=== PATIENT | female | born 1950 | race Caucasian/White ===

== ENCOUNTER → 2016-07-15 | Outpatient (CLI) | payer BC, MEDICARE ==
--- NOTE | 2016-07-15 12:45 | WWHP ---
DATE OF SERVICE: 07/15/2016 CHIEF COMPLAINT: The patient is here for her routine gynecologic exam and mammogram. HPI: This is a 65-year-old, G2, P2 with an LMP of 2000. The patient is without gynecologic complaints. PAST MEDICAL HISTORY: History of osteopenia. MEDICATIONS: 1. Aspirin 81 mg daily. 2. Vitamin D3, 1000 units daily. 3. Vitamin B complex 1 daily. ALLERGIES: No known drug allergies. 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 SOCIAL HISTORY: She previously smoked when she was in college, but has not smoked since then. She has about one glass of wine per day and denies drug use. She has been a since 2006. She has a boyfriend, but is no longer sexually active and she does not live with him. They have been together since about 2011. 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 REVIEW OF SYSTEMS: Weight has been stable. She denies respiratory, cardiac, or GI problems. She denies maltreatment or falling. PHYSICAL EXAM: Blood pressure 114/71. Height 5 feet 4 inches. Weight 133 pounds. Temperature 97.1, pulse 61. This is a well-developed, well-nourished white female who is alert and oriented x3 in no acute distress. HEENT is within normal limits. NECK: Supple without mass or thyromegaly. CHEST AND LUNGS: Clear to auscultation. HEART: Regular rate and rhythm. Breasts are without mass or discharge. Axillary exam is negative for adenopathy. BACK: Negative for CVA tenderness. ABDOMEN: Soft, nontender, without palpable masses. PELVIC EXAM: External genitalia reveals mild to moderate atrophy without lesions. Cervix and vagina reveal mild to moderate atrophy without lesions. There is a grade 1 cystocele noted. The uterus is midposition, nongravid size and nontender. There are no palpable adnexal masses or tenderness. Rectovaginal exam is negative for mass or tenderness and is negative for occult blood. EXTREMITIES: Nontender. IMPRESSION: A 65-year-old menopausal female with normal gynecologic exam. PLAN: 1. Pap smear was deferred, since she had a normal one last year. 2. Self breast examination was discussed. 3. Mammogram will be done today. 4. Osteoporosis prevention was discussed. We will plan on repeating bone density testing next year. 5. She will return in one year.
--- NOTE | 2016-07-17 12:33 | MM ---
Reason for exam: screening (asymptomatic). Last mammogram was performed 1 year and 3 months ago. History: Patient is postmenopausal. Family history of breast cancer in paternal aunt at age 50 and breast cancer in paternal uncle at age 50. Physical Findings: A clinical breast exam by your physician is recommended on an annual basis and results should be correlated with mammographic findings. MG Screening Mammo w CAD Bilateral CC and MLO view(s) were taken. Prior study comparison: April 24, 2015, bilateral MG screening mammo w CAD. April 03, 2014, bilateral MG screening mammo w CAD. March 22, 2013, bilateral digital screening mammo w/CAD. The breast tissue is extremely dense which could obscure a lesion on mammography. No significant changes when compared with prior studies. ASSESSMENT: Negative, BI-RAD 1 RECOMMENDATION: Routine screening mammogram of both breasts in 1 year.
== END | disposition home or self-care (01) ==
LOC: WWCWWP 10:20
PROVIDERS: ATTEND Obstetrics & Gynecology
DX: Z12.31 Encounter for screening mammogram for malignant neoplasm of breast (principal)

== ENCOUNTER → 2017-11-24 | Outpatient (CLI) | payer MEDICARE ==
[2017-11-24 08:22] VITALS: BP 106/70; PULSE 63; TEMP 97.8; BMI 23.0
--- NOTE | 2017-11-24 09:00 | P.HPOB ---
History of Present Illness H&P Date: 11/24/17 Chief Complaint: The patient is here for her routine gynecologic exam and mammogram. This is a 67-year-old with an LMP of 2000. The patient is without gynecologic complaints and denies any postmenopausal bleeding. Review of Systems Weight has been stable. She denies respiratory, cardiac and G.I. problems. She denies maltreatment or problems with falling. : she denies any significant problems with urinary leakage. Past Medical History Additional Past Medical History / Comment(s): Seasonal allergies and osteopenia. 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 History of Any Multi-Drug Resistant Organisms: None Reported Past Surgical History: Tonsillectomy, Tubal Ligation Additional Past Surgical History / Comment(s): Colonoscopy 2017 (2nd). 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 She is currently not seeing anybody at this time and is not sexually active. - Past Family History Father Family Medical History: Hypertension, Myocardial Infarction ([place]) Additional Family Medical History / Comment(s): Paternal aunt had breast cancer in a paternal uncle also had breast cancer. Mother Family Medical History: Cancer (Lung), Hypertension Medications and Allergies Home Medications Medication Instructions Recorded Confirmed Type Aspirin [Children's Aspirin] mg PO DAILY 11/24/17 History Cholecalciferol [Vitamin D3] unit PO 11/24/17 History Loratadine tab PO DAILY 11/24/17 History Vit B Complx C/Folic Acid/Zinc tab PO DAILY 11/24/17 History [Renaplex Tablet] Allergies Allergy/AdvReac Type Severity Reaction Status Date / Time No Known Allergies Allergy Unverified 11/24/17 08:14 Exam Vital Signs Temp Pulse BP 11/24/17 08:17 97.8 F 63 106/70 Intake and Output 11/23/17 11/24/17 11/24/17 22:59 06:59 14:59 Other: Weight 60.781 kg Height 5'4", BMI 23.0. This is a well-developed well-nourished white female who is alert and oriented times 3 in no acute distress. HEENT: Within normal limits. NECK: Supple without mass or thyromegaly. CHEST AND LUNGS: Clear to auscultation. HEART: Regular rate and rhythm. BREASTS: Are without mass or discharge. AXILLARY EXAM: Negative for adenopathy. BACK: Negative for CVA tenderness. ABDOMEN: Soft, nontender, without palpable masses. PELVIC EXAM: Normal external genitalia with mild atrophy. Cervix and vagina appear normal smiled atrophy. There is no unusual discharge. There is no evidence of prolapse. The uterus is midposition, nongravid size and nontender. There are no palpable adnexal masses or tenderness. RECTAL EXAM: rectovaginal exam is negative for mass or tenderness and is negative for occult blood. EXTREMITIES: Nontender. IMPRESSION: 1. 67-year-old menopausal female with normal gynecologic exam. 2. History of osteopenia. PLAN: 1. Pap smear was performed. 2. Self breast awareness was discussed. 3. Screening mammogram will be done today. 4. Osteoporosis prevention was discussed. Bone density screening will be done today. 5. She does get flu shots in the fall. 6. I have recommended screening colonoscopy since it is been about 10 years. She will try to have this arranged through Dr. Hopkins's office. 7. She will return in one year.
--- NOTE | 2017-11-24 11:14 | BD ---
EXAMINATION TYPE: Axial Bone Density DATE OF EXAM: 11/24/2017 CLINICAL HISTORY: Postmenopausal female Height: 63.75 Weight: 134 Comparison: Prior DEXA bone scan April 25, 2015 FRAX RISK QUESTIONS: Alcohol (3 or more units per day): no Family History (Parent hip fracture): no Glucocorticoids (More than 3mos): no (Ex: prednisone, prednisolone, methylprednisolone, dexamethasone, and hydrocortisone). History of Fracture in Adulthood: yes Secondary Osteoporosis: 1. Type 1 Diabetes: no 2. Hyperthyroidism: no 3. Menopause before 45: no, 47 4. Malnutrition: no 5. Chronic liver disease: no Rheumatoid Arthritis: no Current Tobacco Use: no RISK FACTORS HISTORY OF: History of Wrist Fracture: yes, right When: about 7 years ago Family History of Osteoporosis: no Active: yes Diet low in dairy products/other sources of calcium: no Postmenopausal woman: yes Take estrogen and/or progesterone medications: no Lost more than 2 inches in height since high school: no Frequent falls: no Poor Health: no Hyperparathyroidism: no Adrenal Insufficiency: no MEDICATIONS: Prednisone or other steroids: no Additional Medications: vitamins Additional History: EXAM MEASUREMENTS: Bone mineral densitometry was performed using the [employer] System. Bone mineral density as measured about the Lumbar spine is: ----- L1-L4(G/cm2): 1.065 T Score Values are as follows: ----- L2: -1.6 ----- L3: -0.9 ----- L4: -0.2 ----- L1-L4: -1.0 Bone mineral density has: Decreased -0.1% since study of: 04/25/2015 Bone mineral density about the R hip (g/cm2): 0.827 Bone mineral density about the L hip (g/cm2): 0.956 T Score values are as follows: -----R Neck: -1.5 -----L Neck: -0.6 -----R Total: -1.4 -----L Total: -0.5 Bone mineral density has: Increased 1.5% since study of: 04/25/2015 IMPRESSION: Osteopenia (T Score between -2.5 and -1) remains present. Bone density fairly stable from prior. There is slightly increased risk of fracture and the patient may be considered for treatment. Re-Screen 2-5 years. NOTE: T-SCORE=SD OF THE YOUNG ADULT MEAN.
--- NOTE | 2017-11-25 10:31 | MM ---
Reason for exam: screening (asymptomatic). Last mammogram was performed 1 year and 4 months ago. History: Patient is postmenopausal. Family history of breast cancer in paternal aunt at age 50 and breast cancer in paternal uncle at age 50. Physical Findings: A clinical breast exam by your physician is recommended on an annual basis and results should be correlated with mammographic findings. MG 3D Screening Mammo W/Cad Bilateral CC and MLO view(s) were taken. Prior study comparison: July 17, 2016, bilateral MG screening mammo w CAD. April 24, 2015, bilateral MG screening mammo w CAD. The breast tissue is extremely dense which could obscure a lesion on mammography. There is no discrete abnormality. ASSESSMENT: Negative, BI-RAD 1 RECOMMENDATION: Routine screening mammogram of both breasts in 1 year.
== END | disposition home or self-care (01) ==
LOC: WWCWWP 07:52
PROVIDERS: ATTEND Obstetrics & Gynecology
DX: Z12.31 Encounter for screening mammogram for malignant neoplasm of breast (principal); M85.80 Other specified disorders of bone density and structure, unspecified site; Z78.0 Asymptomatic menopausal state
CPT/HCPCS: 77063; 77067; 77080

== ENCOUNTER → 2018-04-21 | Day surgery (SDC) | payer MEDICARE ==
[2018-04-19 11:20] VITALS: BMI 22.3
[~2018-04-21] MED LIST: LACTATED RINGERS 1,000 ML IV SCH; LIDOCAINE 1% 20 ML VIAL (10MG/ML) FOR IV START INTRADERMA PRN; PROPOFOL 10 MG/ML 20 ML VIAL IV ONE
[2018-04-21 10:01] VITALS: RESP 16; TEMP 98.6
--- NOTE | 2018-04-21 10:23 | P.PCN ---
Date of Procedure: 04/21/18 Procedure(s) Performed: BRIEF HISTORY: Patient is a 67-year-old pleasant white female, scheduled for an elective colonoscopy as a part of screening for colorectal neoplasia. PROCEDURE PERFORMED: Colonoscopy. PREOPERATIVE DIAGNOSIS: Screening for colon cancer. IV sedation per Anesthesia. PROCEDURE: After informed consent was obtained, the patient, was brought into the endoscopy unit. IV sedation was administered by Anesthesia under continuous monitoring. Digital rectal examination was normal. Initially the Olympus CF- 160 flexible video colonoscope was then inserted in the rectum, gradually advanced into the cecum without any difficulty. Careful examination was performed as the scope was gradually being withdrawn. Ileocecal valve and the appendiceal orifice were visualized and appeared normal. Prep was excellent. Mucosa of the cecum, ascending colon, transverse colon, descending colon, sigmoid colon, and rectum appeared normal. Retroflexion was performed in the rectum and no lesions were seen. The patient tolerated the procedure well. IMPRESSION: Normal-appearing colon from rectum to cecum with no evidence of colorectal neoplasia . RECOMMENDATIONS: Findings of this examination were discussed with the patient as well as a family.. She was advised to have a repeat screening coloscopy in 10 years.
[2018-04-21 10:42] VITALS: BP 126/75; PULSE 66
== END | disposition home or self-care (01) ==
LOC: ORWHC2ENDO 08:55
PROVIDERS: ATTEND Internal Medicine Gastroenterology
DX: Z12.11 Encounter for screening for malignant neoplasm of colon (principal); Z79.82 Long term (current) use of aspirin
CPT/HCPCS: J2704; G0121

== ENCOUNTER → 2019-01-25 | Outpatient (CLI) | payer MEDICARE ==
[2019-01-25 08:01] VITALS: BP 110/67; PULSE 66; RESP 18; TEMP 97.8; BMI 23.1
--- NOTE | 2019-01-25 08:30 | P.HPOB ---
History of Present Illness H&P Date: 01/25/19 Chief Complaint: The patient is here for her routine gynecologic exam and ma mmogram. This is a 68-year-old G to P2 with an LMP of 2000. The patient is without gynecologic complaints. Review of Systems Weight has been stable. She denies respiratory, cardiac and G.I. problems. She denies maltreatment or problems with falling. : she denies any significant problems with urinary leakage. Past Medical History Past Medical History: Osteoarthritis (OA) Additional Past Medical History / Comment(s): Seasonal allergies and osteopenia. 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 History of Any Multi-Drug Resistant Organisms: None Reported Past Surgical History: Tonsillectomy, Tubal Ligation Additional Past Surgical History / Comment(s): Colonoscopy 2018(next after 10yrs). Past Anesthesia/Blood Transfusion Reactions: No Reported Reaction Past Psychological History: No Psychological Hx Reported Smoking Status: Former smoker Past Alcohol Use History: Daily (One per day) Additional Past Alcohol Use History / Comment(s): smoked only in college. 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 She has a boyfriend since 2019 but does not live with him. She [place] much of [place]. - Past Family History Father Family Medical History: Hypertension, Myocardial Infarction ([place]) Additional Family Medical History / Comment(s): Paternal aunt had breast cancer in a paternal uncle also had breast cancer. Mother Family Medical History: Cancer, Hypertension Additional Family Medical History / Comment(s): Lung cancer. Medications and Allergies Home Medications Medication Instructions Recorded Confirmed Type Aspirin [Children's Aspirin] 1 mg PO DAILY 11/24/17 01/25/19 History Cholecalciferol [Vitamin D3] 1 tab PO DAILY 11/24/17 01/25/19 History Loratadine 1 tab PO DAILY 11/24/17 01/25/19 History Vit B Complx C/Folic Acid/Zinc 1 tab PO DAILY 11/24/17 01/25/19 History [Renaplex Tablet] Allergies Allergy/AdvReac Type Severity Reaction Status Date / Time No Known Allergies Allergy Unverified 01/25/19 08:02 Exam Vital Signs Temp Pulse Resp BP Pulse Ox 09/10/19 07:54 97.8 F 66 18 110/67 98 Intake and Output 01/24/19 01/25/19 01/25/19 22:59 06:59 14:59 Other: Weight 61.235 kg Height 5'4", weight 135 pounds, BMI 23.2. This is a well-developed well-nourished white female who is alert and oriented times 3 in no acute distress. HEENT: Within normal limits. NECK: Supple without mass or thyromegaly. CHEST AND LUNGS: Clear to auscultation. HEART: Regular rate and rhythm. BREASTS: Are without mass or discharge. AXILLARY EXAM: Negative for adenopathy. BACK: Negative for CVA tenderness. ABDOMEN: Soft, nontender, without palpable masses. PELVIC EXAM: Normal external genitalia with mild atrophy. Cervix and vagina appear normal mild atrophy. There is no unusual discharge. There is no evidence of prolapse. The uterus is midposition, nongravid size and nontender. There are no palpable adnexal masses or tenderness. RECTAL EXAM: rectovaginal exam is negative for mass or tenderness and is negative for occult blood. EXTREMITIES: Nontender. IMPRESSION: 1. 68-year-old menopausal female with normal gynecologic exam. 2. History of osteopenia. PLAN: 1. Pap smear was deferred since he had a normal one on 11/24/2017. 2. Self breast awareness was discussed with the patient. 3. Screening mammogram will be done today. 4. Osteoporosis prevention was discussed. I have stressed the importance of adequate calcium, vitamin D and regular exercise. Recommended amounts of calci um and vitamin D were also discussed. We will repeat bone density testing in approximately 2 years. 5. She plans to get a flu shot in the near future through her PCP. 6. The patient was advised to return in 1-2 years for her well woman examination.
--- NOTE | 2019-01-26 10:45 | MM ---
Reason for exam: screening (asymptomatic). Last mammogram was performed 1 year and 2 months ago. History: Patient is postmenopausal. Family history of breast cancer in paternal aunt at age 50 and breast cancer in paternal uncle at age 50. Physical Findings: A clinical breast exam by your physician is recommended on an annual basis and results should be correlated with mammographic findings. MG 3D Screening Mammo W/Cad Bilateral CC and MLO view(s) were taken. Prior study comparison: November 24, 2017, bilateral MG 3d screening mammo w/cad. July 17, 2016, bilateral MG screening mammo w CAD. The breast tissue is extremely dense which could obscure a lesion on mammography. No suspicious abnormality. No significant changes when compared with prior studies. ASSESSMENT: Negative, BI-RAD 1 RECOMMENDATION: Routine screening mammogram of both breasts in 1 year.
== END | disposition home or self-care (01) ==
LOC: WWCWWP 07:47
PROVIDERS: ATTEND Obstetrics & Gynecology
DX: Z12.31 Encounter for screening mammogram for malignant neoplasm of breast (principal)
CPT/HCPCS: 77063; 77067

== ENCOUNTER → 2020-02-28 | Outpatient (CLI) | payer MEDICARE ==
[2020-02-28 08:04] VITALS: BP 127/86; PULSE 72; RESP 18; TEMP 97.9
--- NOTE | 2020-02-28 08:44 | P.HPOB ---
History of Present Illness H&P Date: 02/28/20 Chief Complaint: The patient is here for her routine gynecologic exam and ma mmogram. This is a 69-year-old with an LMP of 2000. The patient states she has noticed a small boil on the left labia recently. She has had something similar about every 3 years. She states it is not very painful but can occasionally be sore. She states it typically goes away. It does not look like a blister. She is otherwise without complaints and denies any postmenopausal bleeding. Review of Systems She is gained about 6 pounds over the last year. She denies respiratory, cardiac and G.I. problems. She denies maltreatment or problems with falling. : she denies any significant problems with urinary leakage. Past Medical History Past Medical History: Osteoarthritis (OA) Additional Past Medical History / Comment(s): Seasonal allergies and osteopenia. 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 History of Any Multi-Drug Resistant Organisms: None Reported Past Surgical History: Tonsillectomy, Tubal Ligation Additional Past Surgical History / Comment(s): Colonoscopy 2018(next after 10yrs). Past Anesthesia/Blood Transfusion Reactions: No Reported Reaction Past Psychological History: No Psychological Hx Reported Smoking Status: Former smoker Past Alcohol Use History: Daily (One per day) Additional Past Alcohol Use History / Comment(s): smoked only in college. 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 She has been with her boyfriend since 2019 and does not live with him. They are sexually active. She [place] much of the [place]. - Past Family History Father Family Medical History: Hypertension, Myocardial Infarction ([place]) Additional Family Medical History / Comment(s): Paternal aunt had breast cancer in a paternal uncle also had breast cancer. Mother Family Medical History: Cancer, Hypertension Additional Family Medical History / Comment(s): Lung cancer. Medications and Allergies Home Medications Medication Instructions Recorded Confirmed Type Aspirin [Children's Aspirin] 1 mg PO DAILY 11/24/17 02/28/20 History Cholecalciferol [Vitamin D3] 1 tab PO DAILY 11/24/17 02/28/20 History Loratadine 1 tab PO DAILY 07/10/18 10/13/20 History Vit B Complx C/Folic Acid/Zinc 1 tab PO DAILY 11/24/17 02/28/20 History [Renaplex Tablet] Allergies Allergy/AdvReac Type Severity Reaction Status Date / Time No Known Allergies Allergy Unverified 02/28/20 07:56 Exam Vital Signs Temp Pulse Resp BP Pulse Ox 02/28/20 07:59 97.9 F 72 18 127/86 98 Intake and Output 02/27/20 02/28/20 02/28/20 22:59 06:59 14:59 Other: Weight 63.957 kg Height 5 feet 4 inches, weight 141 pounds, BMI 24.2. This is a well-developed well-nourished white female who is alert and oriented times 3 in no acute distress. HEENT: Within normal limits. NECK: Supple without mass or thyromegaly. CHEST AND LUNGS: Clear to auscultation. HEART: Regular rate and rhythm. BREASTS: Are without mass or discharge. AXILLARY EXAM: Negative for adenopathy. BACK: Negative for CVA tenderness. ABDOMEN: Soft, nontender, without palpable masses. PELVIC EXAM: External genitalia reveals a 9 mm pimple-like lesion on the left l abia which is minimally inflamed. This is not ulcerated and has a benign appearance. It is nontender. Cervix and vagina appear normal with mild atrophy. There is no unusual discharge. There is no evidence of prolapse. The uterus is midposition, nongravid size and nontender. There are no palpable adnexal masses or tenderness. RECTAL EXAM: Rectovaginal exam is negative for mass or tenderness and is negative for occult blood. EXTREMITIES: Nontender. IMPRESSION: 1. 69-year-old menopausal female with a benign-appearing left labial small boil and otherwise unremarkable gynecologic exam. 2. History of osteopenia. PLAN: 1. Pap smear was performed. If this one is negative, we will consider discontinuing Pap smears. 2. Self breast awareness was discussed with the patient. 3. Screening mammogram will be done today. 4. The patient will use warm compresses to the small labial boil. She will avoid squeezing or popping this. She will call if it is causing her problems or increasing in size. She can use Neosporin as directed. 5. Osteoporosis prevention was discussed. I have stressed the importance of adequate calcium, vitamin D and regular exercise. Recommended amounts of calc ium and vitamin D were also discussed. We will plan on repeating bone density testing in 2020. The order slip was given to the patient for this. 6. She did get her flu shot this fall. 7. The patient was advised to return in 1-2 years for her well woman examination.
--- NOTE | 2020-02-29 11:39 | MM ---
Reason for exam: screening (asymptomatic). Last mammogram was performed 1 year and 1 month ago. History: Patient is postmenopausal. Family history of breast cancer in paternal aunt at age 50 and breast cancer in paternal uncle at age 50. Physical Findings: A clinical breast exam by your physician is recommended on an annual basis and results should be correlated with mammographic findings. MG 3D Screening Mammo W/Cad Bilateral CC and MLO view(s) were taken. Prior study comparison: January 25, 2019, bilateral MG 3d screening mammo w/cad. November 24, 2017, bilateral MG 3d screening mammo w/cad. The breast tissue is extremely dense which could obscure a lesion on mammography. There is no discrete abnormality. No significant changes when compared with prior studies. ASSESSMENT: Negative, BI-RAD 1 RECOMMENDATION: Routine screening mammogram of both breasts in 1 year.
--- NOTE | 2020-03-13 17:51 | P.PN ---
Progress Note - Text Progress Note Date: 03/13/20 OUTPATIENT FOLLOW-UP NOTE TEST(S)/RESULTS: test results from 02/28/2020 include negative Pap smear and benign mammogram. METHOD OF NOTIFICATION: a message with these results was left on the patient's voice mail. PATIENT COMMENTS: DIAGNOSIS: negative Pap smear and benign mammogram. DISCUSSION: PLAN: The patient was advised to return in 1-2 years for her well woman examination.
== END | disposition home or self-care (01) ==
LOC: WWCWWP 07:40
PROVIDERS: ATTEND Obstetrics & Gynecology
DX: Z12.31 Encounter for screening mammogram for malignant neoplasm of breast (principal)
CPT/HCPCS: 77063; 77067

== ENCOUNTER → 2021-03-13 | Outpatient (CLI) | payer MEDICARE ==
[2021-03-13 09:44] VITALS: BP 125/86; PULSE 79; RESP 18; TEMP 97.6
--- NOTE | 2021-03-13 10:18 | P.HPOB ---
History of Present Illness H&P Date: 03/13/21 Chief Complaint: The patient is here for her routine gynecologic exam and ma mmogram. This is a 70-year-old with an LMP of 2000. The patient is without gynecologic complaints and denies any postmenopausal bleeding. Review of Systems Weight has been stable. She denies respiratory, cardiac and G.I. problems. She denies maltreatment or problems with falling. : she denies any significant problems with urinary leakage. Past Medical History Past Medical History: Osteoarthritis (OA) Additional Past Medical History / Comment(s): Seasonal allergies and osteopenia. 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 History of Any Multi-Drug Resistant Organisms: None Reported Past Surgical History: Tonsillectomy, Tubal Ligation Additional Past Surgical History / Comment(s): Colonoscopy 2017(next after 10yrs). Cystoscopy 2020 for microscopic hematuria. Past Anesthesia/Blood Transfusion Reactions: No Reported Reaction Past Psychological History: No Psychological Hx Reported Smoking Status: Former smoker Past Alcohol Use History: Occasional (5 per Week) Additional Past Alcohol Use History / Comment(s): smoked only in college. 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 She is not seeing anybody at this time and has not been sexually active during the past year. She spends much of her winter in the villages in [place]. - Past Family History Father Family Medical History: Hypertension, Myocardial Infarction ([place]) Additional Family Medical History / Comment(s): Paternal aunt had breast cancer in a paternal uncle also had breast cancer. Mother Family Medical History: Cancer, Hypertension Additional Family Medical History / Comment(s): Lung cancer. Medications and Allergies Home Medications Medication Instructions Recorded Confirmed Type Aspirin [Children's Aspirin] 1 mg PO DAILY 11/24/17 03/13/21 History Cholecalciferol [Vitamin D3] 1 tab PO DAILY 11/24/17 03/13/21 History Loratadine 1 tab PO DAILY 11/24/17 03/13/21 History Vit B Complx C/Folic Acid/Zinc 1 tab PO DAILY 11/24/17 03/13/21 History [Renaplex Tablet] Allergies Allergy/AdvReac Type Severity Reaction Status Date / Time No Known Allergies Allergy Unverified 03/13/21 09:37 Exam Vital Signs Temp Pulse Resp BP Pulse Ox 03/13/21 09:38 97.6 F 79 18 125/86 98 Intake and Output 03/12/21 03/13/21 03/13/21 22:59 06:59 14:59 Other: Weight 63.503 kg Height 5 feet 4 inches, weight 140 pounds, BMI 24.0. This is a well-developed well-nourished white female who is alert and oriented times 3 in no acute distress. HEENT: Within normal limits. NECK: Supple without mass or thyromegaly. CHEST AND LUNGS: Clear to auscultation. HEART: Regular rate and rhythm. BREASTS: Are without mass or discharge. AXILLARY EXAM: Negative for adenopathy. BACK: Negative for CVA tenderness. ABDOMEN: Soft, nontender, without palpable masses. PELVIC EXAM: Normal external genitalia with mild to moderate atrophy. Cervix and vagina appear normal with mild atrophy. There is no unusual discharge. There is a grade 2 cystocele with no other evidence of prolapse. The uterus is midposition, nongravid size and nontender. There are no palpable adnexal masses or tenderness. RECTAL EXAM: Rectovaginal exam is negative for mass or tenderness and is negative for occult blood. EXTREMITIES: Nontender. IMPRESSION: 1. 70-year-old menopausal female with a symptomatic grade 2 cystocele. 2. History of osteopenia. PLAN: 1. Pap smears have been discontinued. 2. Self breast awareness was discussed with the patient. We have also discussed symptoms associated with inflammatory breast cancer. 3. Screening mammogram will be done today. 4. Osteoporosis prevention was discussed. I have stressed the importance of adequate calcium, vitamin D and regular exercise. Recommended amounts of calcium and vitamin D were also discussed. Bone density testing will be done today. 5. She has completed her Covid vaccination series and did get a flu shot this fall. She plans to get a Covid posterior in the near future. 6. The patient was advised to return in 1-2 years for her well woman examination.
--- NOTE | 2021-03-13 16:08 | BD ---
EXAMINATION TYPE: Axial Bone Density DATE OF EXAM: 03/13/2021 COMPARISON: NONE CLINICAL HISTORY: Height: 64 Weight: 140 FRAX RISK QUESTIONS: Alcohol (3 or more units per day): no Family History (Parent hip fracture): no Glucocorticoids (More than 3mos): no (Ex: prednisone, prednisolone, methylprednisolone, dexamethasone, and hydrocortisone). History of Fracture in Adulthood: yes Secondary Osteoporosis: 1. Type 1 Diabetes: no 2. Hyperthyroidism: no 3. Menopause before 45: no 4. Malnutrition: no 5. Chronic liver disease: no Rheumatoid Arthritis: no Current Tobacco Use: no RISK FACTORS HISTORY OF: Hip Fracture (Right/Left): yes When: 10 years ago Surgery to Spine/Hip(right/left)/Wrist (right/left): no Family History of Osteoporosis: no Active: yes Diet low in dairy products/other sources of calcium: no Postmenopausal woman: yes Lost more than 2 inches in height since high school: no MEDICATIONS: vitamins Additional History: EXAM MEASUREMENTS: Bone mineral densitometry was performed using the [employer] System. Bone mineral density as measured about the Lumbar spine is: ----- L1-L4(G/cm2): 1.045 T Score Values are as follows: ----- L2: -1.5 ----- L3: -1.1 ----- L4: -0.4 ----- L1-L4: -1.1 Bone mineral density has: decreased -1.5 % since study of: 11.24.2017 Bone mineral density about the R hip (g/cm2): 0.785 Bone mineral density about the L hip (g/cm2): 0.917 T Score values are as follows: -----R Neck: -1.8 -----L Neck: -0.9 -----R Total: -1.6 -----L Total: -0.6 Bone mineral density has: decreased -1.7 % since study of: 11.24.2017 IMPRESSION: Osteopenia (T Score between -2.5 and -1). There is slightly increased risk of fracture and the patient may be considered for treatment. Re-Screen 2-5 years. NOTE: T-SCORE=SD OF THE YOUNG ADULT MEAN.
--- NOTE | 2021-03-14 09:30 | MM ---
Reason for exam: screening (asymptomatic). Last mammogram was performed 1 year ago. History: Patient is postmenopausal. Family history of breast cancer in paternal aunt at age 50 and breast cancer in paternal uncle at age 50. Physical Findings: A clinical breast exam by your physician is recommended on an annual basis and results should be correlated with mammographic findings. MG 3D Screening Mammo W/Cad Bilateral CC and MLO view(s) were taken. Prior study comparison: February 28, 2020, bilateral MG 3d screening mammo w/cad. January 25, 2019, bilateral MG 3d screening mammo w/cad. The breast tissue is extremely dense which could obscure a lesion on mammography. Focal asymmetry inner left breast zone B/C. ASSESSMENT: Incomplete: need additional imaging evaluation, BI-RAD 0 RECOMMENDATION: Special view mammogram of the left breast. If lesion persists on supplemental views, image directed ultrasound is recommended. [facility] will attempt to contact patient to return for supplemental views and ultrasound if indicated.
--- NOTE | 2021-03-19 11:09 | P.PN ---
Progress Note - Text Progress Note Date: 03/19/21 OUTPATIENT FOLLOW-UP NOTE TEST(S)/RESULTS: Test results from 03/13/2021 include bone density test showing osteopenia, and screening mammogram which did require a left breast workup. Left breast workup was already done on 03/15/2021 and was probably benign. 6 month follow-up on the left side was recommended. METHOD OF NOTIFICATION: The patient was notified by phone. PATIENT COMMENTS: DIAGNOSIS: Osteopenia and probably benign mammogram requiring six-month follow- up. DISCUSSION: I have stressed the importance of getting adequate calcium, vitamin D, and regular exercise. PLAN: Left breast diagnostic mammogram in 6 months. The order slip will be mailed to the patient. Repeat bone density testing in 2-3 years.
== END ==
LOC: WWCWWP 09:22
PROVIDERS: ATTEND Obstetrics & Gynecology
DX: Z12.31 Encounter for screening mammogram for malignant neoplasm of breast (principal); Z01.419 Encounter for gynecological examination (general) (routine) without abnormal findings; N81.10 Cystocele, unspecified; M19.90 Unspecified osteoarthritis, unspecified site; Z87.891 Personal history of nicotine dependence; Z80.3 Family history of malignant neoplasm of breast; Z87.39 Personal history of other diseases of the musculoskeletal system and connective tissue; M85.80 Other specified disorders of bone density and structure, unspecified site; Z78.0 Asymptomatic menopausal state
CPT/HCPCS: 77063; 77067; 77080

== ENCOUNTER → 2021-03-15 | Outpatient (CLI) | payer MEDICARE ==
--- NOTE | 2021-03-18 08:28 | MM ---
Reason for exam: additional evaluation requested from abnormal screening. Last mammogram was performed less than 1 month ago. History: Patient is postmenopausal. Family history of breast cancer in paternal aunt at age 50 and breast cancer in paternal uncle at age 50. Physical Findings: Nurse did not find any significant physical abnormalities on exam. MG 3D Work Up W/Cad LT Spot compression CC, spot compression MLO, and LM view(s) were taken of the left breast. Prior study comparison: March 13, 2021, bilateral MG 3d screening mammo w/cad. February 28, 2020, bilateral MG 3d screening mammo w/cad. The breast tissue is heterogeneously dense. This may lower the sensitivity of mammography. There is no discrete abnormality including area of concern on compression. These results were verbally communicated with the patient and result sheet given to the patient on 03/15/21. ASSESSMENT: Probably benign, BI-RAD 3 RECOMMENDATION: Follow-up diagnostic mammogram of the left breast in 6 months.
== END | disposition home or self-care (01) ==
LOC: RADMAMWWP 14:55
PROVIDERS: ATTEND Obstetrics & Gynecology
DX: R92.8 Other abnormal and inconclusive findings on diagnostic imaging of breast (principal); Z80.3 Family history of malignant neoplasm of breast; Z78.0 Asymptomatic menopausal state
CPT/HCPCS: 77065; G0279; 77061

== ENCOUNTER → 2021-09-17 | Outpatient (CLI) | payer MEDICARE ==
--- NOTE | 2021-09-17 13:30 | MM ---
Reason for exam: follow-up at short interval from prior study. Last mammogram was performed 6 months ago. History: Patient is postmenopausal. Family history of breast cancer in paternal aunt at age 50 and breast cancer in paternal uncle at age 50. Physical Findings: A clinical breast exam by your physician is recommended on an annual basis and results should be correlated with mammographic findings. MG 3D Diag Mammo W/Cad LT CC and MLO view(s) were taken of the left breast. Prior study comparison: March 13, 2021, bilateral MG 3d screening mammo w/cad. The breast tissue is heterogeneously dense. This may lower the sensitivity of mammography. There is no discrete abnormality. Results were given to the patient verbally at the time of the exam. ASSESSMENT: Negative, BI-RAD 1 RECOMMENDATION: Return to routine screening mammogram schedule for both breasts. Back on schedule.
== END | disposition home or self-care (01) ==
LOC: RADMAMWWP 12:42
PROVIDERS: ATTEND Obstetrics & Gynecology
DX: R92.8 Other abnormal and inconclusive findings on diagnostic imaging of breast (principal); Z78.0 Asymptomatic menopausal state; Z80.3 Family history of malignant neoplasm of breast
CPT/HCPCS: 77065; G0279; 77061

== ENCOUNTER → 2022-03-18 | Outpatient (CLI) | payer MEDICARE ==
[2022-03-18 09:40] VITALS: BP 142/82; PULSE 68; RESP 17; TEMP 98.4
--- NOTE | 2022-03-18 10:14 | P.HPOB ---
History of Present Illness H&P Date: 03/18/22 Chief Complaint: The patient is here for her routine gynecologic exam and ma mmogram. This is a 71-year-old with an LMP of 2000. The patient is without gynecologic complaints. Review of Systems The patient has lost 3 pounds over the last year. She denies respiratory, cardiac, or G.I. problems. Past Medical History Past Medical History: Osteoarthritis (OA) Additional Past Medical History / Comment(s): Seasonal allergies and osteopenia. 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 History of Any Multi-Drug Resistant Organisms: None Reported Past Surgical History: Tonsillectomy, Tubal Ligation Additional Past Surgical History / Comment(s): Colonoscopy 2017(next after 10yrs). Cystoscopy 2020 for microscopic hematuria. Past Anesthesia/Blood Transfusion Reactions: No Reported Reaction Past Psychological History: No Psychological Hx Reported Smoking Status: Former smoker Past Alcohol Use History: Daily (One per night) Additional Past Alcohol Use History / Comment(s): smoked only in college. 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 She is not seeing anybody at this time and has not been sexually active during the past year. She [place] much of [place]. - Past Family History Father Family Medical History: Hypertension, Myocardial Infarction ([place]) Additional Family Medical History / Comment(s): Paternal aunt had breast cancer in a paternal uncle also had breast cancer. Mother Family Medical History: Cancer, Hypertension Additional Family Medical History / Comment(s): Lung cancer. Medications and Allergies Home Medications Medication Instructions Recorded Confirmed Type Aspirin [Children's Aspirin] 1 mg PO DAILY 11/24/17 03/18/22 History Cholecalciferol [Vitamin D3] 1 tab PO DAILY 11/24/17 03/18/22 History Loratadine 1 tab PO DAILY 11/24/17 03/18/22 History Vit B Complx C/Folic Acid/Zinc 1 tab PO DAILY 11/24/17 03/18/22 History [Renaplex Tablet] Allergies Allergy/AdvReac Type Severity Reaction Status Date / Time No Known Allergies Allergy Unverified 03/18/22 09:35 Exam Vital Signs Temp Pulse Resp BP Pulse Ox 03/18/22 09:36 98.4 F 68 17 142/82 99 Intake and Output 03/17/22 03/18/22 03/18/22 22:59 06:59 14:59 Other: Weight 62.142 kg Height 5 feet 4 inches, weight 137 pounds, BMI 23.5. This is a well-developed well-nourished white female who is alert and oriented times 3 in no acute distress. HEENT: Within normal limits. NECK: Supple without mass or thyromegaly. CHEST AND LUNGS: Clear to auscultation. HEART: Regular rate and rhythm. BREASTS: Are without mass or discharge. AXILLARY EXAM: Negative for adenopathy. BACK: Negative for CVA tenderness. ABDOMEN: Soft, nontender, without palpable masses. PELVIC EXAM: Normal external genitalia with mild to moderate atrophy. Cervix and vagina appear normal is mild to moderate atrophy. There is no unusual discharge. There is a stable grade 2 cystocele. The uterus is midposition, nongravid size and nontender. There are no palpable adnexal masses or tenderness. RECTAL EXAM: Rectovaginal exam is negative for mass or tenderness and is negative for occult blood. EXTREMITIES: Nontender. IMPRESSION: 1. 71-year-old menopausal female with a stable grade 2 cystocele which is asymptomatic. 2. History of osteopenia. PLAN: 1. Pap smears have been discontinued. 2. Self breast awareness was discussed with the patient. We have also discussed symptoms associated with inflammatory breast cancer. 3. Screening mammogram will be done today. 4. Osteoporosis prevention was discussed. I have stressed the importance of adequate calcium, vitamin D and regular exercise. Recommended amounts of calcium and vitamin D were also discussed. 5. We have discussed her cystocele. I have recommended that she avoid holding her urine longer than needed. She will call if problems. 6. She has completed her Covid vaccination series and has received 2 boosters. 7. She was advised to return in one year for her annual well woman exam.
--- NOTE | 2022-03-19 08:14 | MM ---
Reason for Exam: Screening (asymptomatic). Last mammogram was performed 1 year(s) and 1 month(s) ago. Patient History: Menarche at age 12. First Full-Term at age 25. Postmenopausal. Patient used Estrogen and Progesterone for 4 years. Paternal aunt had breast cancer, age 50. Paternal uncle had breast cancer, age 50. Risk Values: Gilma 5 year model risk: 1.9%. NCI Lifetime model risk: 5.4%. Prior Study Comparison: 02/18/1993 Screening Mammogram, [facility]. 07/17/2016 Bilateral Screening Mammogram, [facility]. 11/24/2017 Bilateral Screening Mammogram, [facility]. 01/25/2019 Bilateral Screening Mammogram, [facility]. 02/28/2020 Bilateral Screening Mammogram, [facility]. 03/13/2021 Bilateral Screening Mammogram, [facility]. 03/15/2021 Left Diagnostic Mammogram, [facility]. 09/17/2021 Left Diagnostic Mammogram, [facility]. Tissue Density: The breast tissue is heterogeneously dense. This may lower the sensitivity of mammography. Findings: Analyzed By CAD. There is no suspicious group of microcalcifications or new suspicious mass in either breast. Overall Assessment: Negative, BI-RAD 1 Management: Screening Mammogram of both breasts in 1 year. A clinical breast exam by your physician is recommended on an annual basis and results should be correlated with mammographic findings. Electronically signed and approved by: Malachi Toro M.D. Radiologis
== END ==
LOC: WWCWWP 09:14
PROVIDERS: ATTEND Obstetrics & Gynecology
DX: Z12.31 Encounter for screening mammogram for malignant neoplasm of breast (principal); Z01.419 Encounter for gynecological examination (general) (routine) without abnormal findings; N81.10 Cystocele, unspecified; Z87.39 Personal history of other diseases of the musculoskeletal system and connective tissue
CPT/HCPCS: 77063; 77067

== ENCOUNTER → 2023-03-31 | Outpatient (CLI) | payer MEDICARE ==
[2023-03-31 09:44] VITALS: BP 146/90; PULSE 67; RESP 16; TEMP 97.9
--- NOTE | 2023-03-31 10:00 | P.HPOB ---
History of Present Illness H&P Date: 03/31/23 Chief Complaint: The patient is here for her routine gynecologic exam and ma mmogram. This is a 72-year-old with an LMP of 2000. She has a known grade 2 cystocele and she states she has not had any problems with it. She is without gynecologic complaints. She is planning on moving to [place] to be closer to her children. She is not sure if she will be returning for her well woman examinations or if she will establish with a doctor in that area. Review of Systems The patient has lost 4 pounds over the last year. She denies respiratory, cardiac, or G.I. problems. Past Medical History Past Medical History: Osteoarthritis (OA) Additional Past Medical History / Comment(s): Seasonal allergies and osteopenia. 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 History of Any Multi-Drug Resistant Organisms: None Reported Past Surgical History: Tonsillectomy, Tubal Ligation Additional Past Surgical History / Comment(s): Colonoscopy 2017(next after 10yrs). Cystoscopy 2020 for microscopic hematuria. Past Anesthesia/Blood Transfusion Reactions: No Reported Reaction Past Psychological History: No Psychological Hx Reported (PHQ-2 questionaire was given and she scores 0. This is a negative screen for depression.) Smoking Status: Former smoker Past Alcohol Use History: Occasional (About 3 drinks per week.) Additional Past Alcohol Use History / Comment(s): smoked only in college. 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 She has not been sexually active during the past year. She plans to move to the [facility] and also spends much of the winter in [place]. - Past Family History Father Family Medical History: Hypertension, Myocardial Infarction ([place]) Additional Family Medical History / Comment(s): Paternal aunt had breast cancer in a paternal uncle also had breast cancer. Mother Family Medical History: Cancer, Hypertension Additional Family Medical History / Comment(s): Lung cancer. Medications and Allergies Home Medications Medication Instructions Recorded Confirmed Type Aspirin [Children's Aspirin] 1 mg PO DAILY 11/24/17 03/18/22 History Cholecalciferol [Vitamin D3] 1 tab PO DAILY 11/24/17 03/18/22 History Loratadine 1 tab PO DAILY 11/24/17 03/18/22 History Vit B Complx C/Folic Acid/Zinc 1 tab PO DAILY 11/24/17 03/18/22 History [Renaplex Tablet] Allergies Allergy/AdvReac Type Severity Reaction Status Date / Time No Known Allergies Allergy Unverified 03/31/23 09:22 Exam Vital Signs Temp Pulse Resp BP Pulse Ox 03/31/23 09:23 97.9 F 67 16 146/90 97 Intake and Output 03/30/23 03/31/23 03/31/23 22:59 06:59 14:59 Other: Weight 60.328 kg Height 5 feet 4 inches, weight 133 pounds, BMI 22.8. This is a well-developed well-nourished white female who is alert and oriented times 3 in no acute distress. HEENT: Within normal limits. NECK: Supple without mass or thyromegaly. CHEST AND LUNGS: Clear to auscultation. HEART: Regular rate and rhythm. BREASTS: Are without mass or discharge. AXILLARY EXAM: Negative for adenopathy. BACK: Negative for CVA tenderness. ABDOMEN: Soft, nontender, without palpable masses. PELVIC EXAM: Normal external genitalia with mild to moderate atrophy. Cervix and vagina appear normal with mild to moderate atrophy. There is no unusual discharge. There is a stable grade 2 cystocele with a grade 1-2 uterine prolapse. The uterus is midposition, nongravid size and nontender. There are no palpable adnexal masses or tenderness. RECTAL EXAM: Rectovaginal exam is negative for mass or tenderness and is negative for occult blood. EXTREMITIES: Nontender. IMPRESSION: 1. 72-year-old menopausal female with stable grade 2 cystocele and a grade 1-2 uterine prolapse. This is asymptomatic. 2. History of osteopenia. 3. Elevated blood pressure. PLAN: 1. Pap smears have been discontinued. 2. Self breast awareness was discussed with the patient. We have also discussed symptoms associated with inflammatory breast cancer. 3. Screening mammogram will be done today. 4. Osteoporosis prevention was discussed. I have stressed the importance of adequate calcium, vitamin D and regular exercise. Recommended amounts of calcium and vitamin D were also discussed. Her last bone density test was done on 03/13/2021. I recommended repeating the bone density test this year. The order slip was given to the patient for this. 5. We have discussed her elevated blood pressure. I have recommended that she check her own blood pressures on a regular basis since she does have her own blood pressure cuff. She will follow up with her PCP for blood pressure elevations. 6. She was advised to return in one year for her annual well woman exam, or if she can establish with a new physician near [place] where she is moving.
== END ==
LOC: WWCWWP 09:10
PROVIDERS: ATTEND Obstetrics & Gynecology
DX: Z12.31 Encounter for screening mammogram for malignant neoplasm of breast (principal); M85.80 Other specified disorders of bone density and structure, unspecified site; M19.90 Unspecified osteoarthritis, unspecified site; R03.0 Elevated blood-pressure reading, without diagnosis of hypertension; Z80.3 Family history of malignant neoplasm of breast; Z87.891 Personal history of nicotine dependence; Z78.0 Asymptomatic menopausal state; Z79.82 Long term (current) use of aspirin; Z79.899 Other long term (current) drug therapy
CPT/HCPCS: 77063; 77067